=== PATIENT | female | born 1980 | race Hispanic/Latino ===

== ENCOUNTER 2017-10-07 10:52 | Emergency (ER) | payer MEDICAID, OTHER ==
[2017-10-07] MEDS ORDERED: ACETAMINOPHEN 325 MG TAB ONE (11:31)
[2017-10-07 11:44] LABS: APPEARANCE,URINE Clear (CLEAR); BILIRUBIN,URINE Negative (NEGATIVE); COLOR,URINE Dark Yellow (YELLOW); GLUCOSE, URINE (UA) Negative (NEGATIVE); KETONES,URINE Trace mg/dL (NEGATIVE); LEUKOCYTE ESTERASE ,URINE Negative (NEGATIVE); NITRATE,URINE Negative (NEGATIVE); OCCULT BLOOD,URINE Negative (NEGATIVE); PROTEIN,URINE Trace (NEGATIVE)
[2017-10-07 11:47] LABS: RAPID GROUP A STREP NEGATIVE (NEGATIVE)
[2017-10-07 11:55] LABS: HCG,QUAL RESULT NEGATIVE (NEGATIVE)
[2017-10-07 12:04] LABS: RBC,URINE 0-1 /HPF (0-1)
[2017-10-07 12:05] LABS: WBC,URINE 0-1 /HPF (0-1)
[2017-10-07 12:06] LABS: BACTERIA,URINE Rare /HPF (None Seen); MUCUS,URINE Moderate LPF (None Seen); SQUAMOUS EPITHELIAL CELL,UR Few /HPF (0-2)
== END 2017-10-07 12:42 | disposition home or self-care (01) ==
LOC: EDH 10:52
DX: J10.1 Influenza due to other identified influenza virus with other respiratory manifestations (principal); I10 Essential (primary) hypertension; Z98.890 Other specified postprocedural states; Z88.8 Allergy status to other drugs, medicaments and biological substances
CPT/HCPCS: 81001; 81025; 87804; 87880

== ENCOUNTER 2023-07-02 18:52 | Emergency (ER) | payer MEDICAID, OTHER ==
[~2023-07-02] VITALS: Ht 149.9 cm; Wt 79.4 kg
[2023-07-02 18:53] VITALS: BP 167/111; PULSE 89; RESP 18
== END 2023-07-02 21:19 | disposition left against medical advice (07) ==
LOC: EDH 18:52
DX: N39.3 Stress incontinence (female) (male) (principal); Z53.21 Procedure and treatment not carried out due to patient leaving prior to being seen by health care provider
CPT/HCPCS: 99281

== ENCOUNTER 2024-05-10 01:35 | Emergency (ER) | payer BC ==
[~2024-05-10] VITALS: Ht 149.9 cm; Wt 84.8 kg
[2024-05-10 01:59] VITALS: BP 153/96; PULSE 88; RESP 18; TEMP 97.8; O2SAT 99
[2024-05-10] MEDS ORDERED: NYST15CR39 TP (02:06)
--- NOTE | 2024-05-10 02:07 | ERN ---
General Chief Complaint: Skin Rash/Abscess Stated Complaint: C/O REDDENED IRRITATED SKIN TO ABDOMEN Time Seen by MD: 02:04 History of Present Illness Initial Comments 43-year-old female who presents for rash. Today she noticed a rash in between her abdominal skin fold in her pelvis. Rashes approximately the size of credit card, appears to be fungus based on clinical exam. She denies any systemic illness. Allergies: Coded Allergies: No Known Drug Allergies (Unverified Allergy, Unknown, 07/02/23) Home Meds Active Scripts Nystatin (Nystatin) 100,000 Unit/Gram Cream.gm., 1 APPL TP TID for 7 Days, #30 GM 0 Refills apply to affected area(s) Prov:DURGA BOONE DO 05/10/24 Past Medical History Past Medical History: Anxiety, Depression, High Cholesterol, Hypertension Medical History Other: PREECLAMPSIA Past Surgical History: Surgical History Other: D&C MDM CC: Rash lower abdomen Historian: Patient Comorbidities: Obesity, hypertension Limitations by social determinants of health: Uninsured Differential diagnosis: Rash, other. No systemic illness Vital signs are stable Symptoms are consistent with a candidiasis rash. We will DC with nystatin recommend zinc oxide [id number]. We will DC ED Course Vital Signs Date Time Temp Pulse Resp B/P (MAP) Pulse Ox O2 Delivery O2 Flow Rate FiO2 05/10/24 01:59 97.9 88 18 153/96 99 Room Air* 0 21 05/10/24 01:38 98.4 79 20 172/117 97 Room Air DX & DISP Disposition: Discharge Departure Impression: Primary Impression: Candidiasis Condition: Stable Scripts Nystatin (Nystatin) 100,000 Unit/Gram Cream.gm. 1 APPL TP TID for 7 Days, #30 GM 0 Refills apply to affected area(s) Prov: DURGA BOONE DO 05/10/24 Additional Instructions: Your symptoms are consistent with a yeast infection called candidiasis. I have prescribed nystatin, which is a topical antifungal medication. Apply this 3 times per day until the infection clears. I also recommend a barrier cream such as zinc oxide 40% (good brands are but pace or Desitin). You can apply this frequently. These medications are [id number]. I recommend follow up with your primary doctor in 1-2 weeks if the infection does not clear. Referrals: SELF,REFERRAL (PCP) DURGA BOONE DO May 10, 2024 02:07
== END 2024-05-10 02:15 | disposition home or self-care (01) ==
LOC: EDH 01:35
DX: B37.9 Candidiasis, unspecified (principal); E66.9 Obesity, unspecified; E78.00 Pure hypercholesterolemia, unspecified; I10 Essential (primary) hypertension; Z79.899 Other long term (current) drug therapy; Z98.890 Other specified postprocedural states
CPT/HCPCS: 99283